=== PATIENT | female | born 1955 | race Two or more races ===

== ENCOUNTER 2018-03-11 13:42 | Emergency (ER) | payer OTHER ==
[~2018-03-11] VITALS: Ht 121.9 cm; Wt 46.7 kg
[2018-03-11] MEDS ORDERED: SYNTHROID75 MCG PO (14:20)
[2018-03-11] MEDS ORDERED: XANAX0.25 MG PO (14:20)
[2018-03-11] MEDS ORDERED: ZOLOFT25 MG PO (14:21)
== END 2018-03-11 17:35 | disposition home or self-care (01) ==
LOC: ER 13:42
DX: G25.2 Other specified forms of tremor (principal)

== ENCOUNTER 2019-11-01 11:34 | Emergency (ER) | payer OTHER ==
[~2019-11-01] VITALS: Ht 142.2 cm; Wt 56.7 kg
[~2019-11-01 11:34] MED LIST: SYNTHROID75 MCG PO; XANAX0.25 MG PO; ZOLOFT25 MG PO
== END 2019-11-01 22:09 | disposition home or self-care (01) ==
LOC: ER 11:34
DX: R33.8 Other retention of urine (principal); F41.8 Other specified anxiety disorders; G30.8 Other Alzheimer's disease; F02.80 Dementia in other diseases classified elsewhere, unspecified severity, without behavioral disturbance, psychotic disturbance, mood disturbance, and anxiety

== ENCOUNTER 2020-05-09 14:24 | Emergency (ER) | payer OTHER ==
[~2020-05-09] VITALS: Ht 137.2 cm; Wt 57.2 kg
== END 2020-05-09 21:03 | disposition home or self-care (01) ==
LOC: ER 14:24
DX: L03.116 Cellulitis of left lower limb (principal); I82.492 Acute embolism and thrombosis of other specified deep vein of left lower extremity

== ENCOUNTER 2020-05-10 12:57 | Outpatient (CLI) | payer OTHER | END 2020-05-10 13:06 | disposition home or self-care (01) | LOC: NUCLEAR 12:57 | PROVIDERS: ATTEND General Practice | DX: I82.403 Acute embolism and thrombosis of unspecified deep veins of lower extremity, bilateral (principal) ==

== ENCOUNTER 2020-05-11 09:53 | Outpatient (CLI) | payer OTHER | END 2020-05-11 10:04 | disposition home or self-care (01) | LOC: NUCLEAR 09:53 | PROVIDERS: ATTEND General Practice | DX: I82.403 Acute embolism and thrombosis of unspecified deep veins of lower extremity, bilateral (principal); I73.9 Peripheral vascular disease, unspecified ==

== ENCOUNTER 2022-12-12 21:57 | Emergency (ER) | payer OTHER ==
[~2022-12-12] VITALS: Ht 132.1 cm; Wt 68.0 kg
[2022-12-12] MEDS ORDERED: RIVASTIGMINE1 EAC1 (22:56)
[2022-12-12] MEDS ORDERED: FAMOTIDINE20 MG (22:56)
[2022-12-12] MEDS ORDERED: ESCITALOPRAM OX10 MG PO (22:56)
[2022-12-12] MEDS ORDERED: TRAZODONE HCL50 MG (22:57)
[2022-12-12] MEDS ORDERED: OLANZAPINE2.5 MG PO (22:57)
== END 2022-12-13 19:17 | disposition home or self-care (01) ==
LOC: ER 21:57
DX: K94.23 Gastrostomy malfunction (principal); Q90.9 Down syndrome, unspecified

== ENCOUNTER 2022-12-18 18:03 | Inpatient (IN) | payer OTHER ==
[~2022-12-18] VITALS: Ht 152.4 cm; Wt 72.6 kg
[~2022-12-18 18:03] MED LIST changes: +ESCITALOPRAM OX10 MG PO; +FAMOTIDINE20 MG; +OLANZAPINE2.5 MG PO; +RIVASTIGMINE1 EAC1; +TRAZODONE HCL50 MG
[2022-12-19] MEDS ORDERED: LEVOTHYROXINE150 MCG (08:22)
[2022-12-19] MEDS ORDERED: FISH OIL 500 M1 EAC3 (08:22)
[2022-12-19] MEDS ORDERED: SENTRY TABLET1 EACH (08:22)
[2022-12-19] MEDS ORDERED: VITAMIN D325 MCG (08:22)
== END 2022-12-29 21:00 | disposition home or self-care (01) | DRG 871 ==
LOC: ER 18:03 → MEDJ 20:50 → ICU-2 20:50 → MEDJ 12-21 16:05
PROVIDERS: ADMIT Internal Medicine; ATTEND Internal Medicine
PROC: 3E0F7GC Introduction of Other Therapeutic Substance into Respiratory Tract, Via Natural or Artificial Opening (ICD-10-PCS; 2022-12-18)
PROC: 4A12X4Z Monitoring of Cardiac Electrical Activity, External Approach (ICD-10-PCS; 2022-12-18)
PROC: 02HV33Z Insertion of Infusion Device into Superior Vena Cava, Percutaneous Approach (ICD-10-PCS; 2022-12-19)
PROC: 3E0G76Z Introduction of Nutritional Substance into Upper GI, Via Natural or Artificial Opening (ICD-10-PCS; 2022-12-19)
PROC: 8E0ZXY6 Isolation (ICD-10-PCS; principal; 2022-12-21)
DX: A41.02 Sepsis due to Methicillin resistant Staphylococcus aureus (principal); B37.1 Pulmonary candidiasis; J69.0 Pneumonitis due to inhalation of food and vomit; R65.21 Severe sepsis with septic shock; J96.01 Acute respiratory failure with hypoxia; F31.89 Other bipolar disorder; A41.89 Other specified sepsis; Q90.9 Down syndrome, unspecified; R13.19 Other dysphagia; I10 Essential (primary) hypertension; E03.9 Hypothyroidism, unspecified; Z74.01 Bed confinement status; Z20.822 Contact with and (suspected) exposure to COVID-19; Z99.81 Dependence on supplemental oxygen; Z78.1 Physical restraint status

== ENCOUNTER 2023-04-14 15:50 | Emergency (ER) | payer OTHER ==
[~2023-04-14] VITALS: Ht 149.9 cm; Wt 54.4 kg
[~2023-04-14 15:50] MED LIST changes: +FISH OIL 500 M1 EAC3; +LEVOTHYROXINE150 MCG; +SENTRY TABLET1 EACH; +VITAMIN D325 MCG
== END 2023-04-14 16:35 | disposition home or self-care (01) ==
LOC: ER 15:50
DX: K94.23 Gastrostomy malfunction (principal)

== ENCOUNTER 2023-12-19 18:21 | Inpatient (IN) | payer OTHER ==
[~2023-12-19] VITALS: Ht 152.4 cm; Wt 54.4 kg
--- NOTE | 2023-12-19 18:40 | NUR ---
PTE ALERTA Y ACTIVA CON DIAGNOSTICO DE SYNDROME DOWN TRAIDA EN AMBULANCIA DESDE UN HOME PORQUE SE RETIRO EL PEG ESTA TARDE.
--- NOTE | 2023-12-19 21:02 | NUR ---
DR BERNAL INTENTA COLOCAR PEG SIN EXITO.
[2023-12-19] MEDS ORDERED: 0.9 % SODIUM CHLORIDE 1,000 ML IV SCH (21:45)
[2023-12-19] MEDS ORDERED: ONDANSETRON HCL 4 MG in 0.9 % SODIUM CHLORIDE 50 ML IV PRN (22:00)
[2023-12-19] MEDS ORDERED: ACETAMINOPHEN 500 MG GEL..CAP PO PRN (22:00)
[2023-12-20 01:58] LABS: HEMATOCRIT 42.6 % (36.0-45.00); HEMOGLOBIN 14.6 g/dL (12.0-15.00); MEAN CELL VOLUME 100.2 fL (80.00-100.00); MEAN CORPUSCULAR HEMOGLOBIN 34.3 pg (27.00-32.0); MEAN CORPUSCULAR HGB CONC 34.2 g/dl (32.0-36.0); PLATELET COUNT 317 K/uL (150-450); RED BLOOD COUNT 4.25 M/uL (4.00-6.00); RED CELL DISTRIBUTION WIDTH 14.3 % (11.5-14.5)
[2023-12-20 02:10] LABS: INR 0.98; PARTIAL THROMBOPLASTIN TIME 24.8 SECONDS (22.0-34.0); PROTHROMBIN TIME 10.3 SECONDS (9.0-11.5)
[2023-12-20 02:15] LABS: ALBUMIN 2.8 gm/dL (3.4-5.0); BILIRUBIN TOTAL 0.62 mg/dL (0.3-1.2); CALCIUM 8.8 mg/dL (8.5-10.1); CREATININE SERUM 0.85 mg/dL (0.55-1.02); GFR 66.71; GLOBULINA 4.5 G/DL (2.4-3.5); POTASSIUM 4.24 mEq/L (3.5-5.1); TOTAL PROTEIN 7.3 gm/dL (6.4-8.2)
[2023-12-20 02:55] LABS: PH,URINE 8.5 (5.0-8.0); URINE APPEARANCE Turbid; URINE BILIRRUBIN Negative (NEGATIVE); URINE BLOOD Large; URINE COLOR Yellow; URINE GLUCOSE Negative (NEGATIVE); URINE LEUKOCYTE Large; URINE NITRATE Positive; URINE PROTEIN 30 (NEGATIVE); URINE UROBILINOGEN 0.2 E.U./dl
[2023-12-20 03:00] LABS: URINE EPITHELIAL CELLS 29.9 uL (0.0-38.8); URINE RBC 476.8 uL (0.0-20.8); URINE WBC 354.3 uL (0.0-23.2)
[2023-12-20 03:41] LABS: URINE CRYSTALS MANY /HPF
[2023-12-20] MEDS ORDERED: LEVOTHYROXINE SODIUM 150 MCG TABLET PO SCH (06:00)
[2023-12-20] MEDS ORDERED: FAMOTIDINE/PF 20 MG/2 ML VIAL ONE (08:00)
[2023-12-20] MEDS ORDERED: FAMOTIDINE/PF 20 MG in 0.9 % SODIUM CHLORIDE 8 ML IV PUSH SCH (09:00)
[2023-12-20] MEDS ORDERED: CEFTRIAXONE SODIUM 2,000 MG in 0.9 % SODIUM CHLORIDE 100 ML IV SCH (09:00)
[2023-12-20] MEDS ORDERED: TRAZODONE HCL 50 MG TABLET PO SCH (21:00)
[2023-12-21] MEDS ORDERED: FAMOTIDINE/PF 20 MG/2 ML VIAL ONE (09:54)
[2023-12-22] MEDS ORDERED: FAMOTIDINE/PF 20 MG/2 ML VIAL ONE (07:18)
== END 2023-12-22 22:48 | DRG 394 ==
LOC: ER 18:21 → SURH 22:03
PROVIDERS: General Practice; ADMIT Internal Medicine; ATTEND Internal Medicine
PROC: BW21ZZZ Computerized Tomography (CT Scan) of Abdomen and Pelvis (ICD-10-PCS; principal; 2023-12-19)
DX: K94.23 Gastrostomy malfunction (principal); E87.0 Hyperosmolality and hypernatremia; Q90.9 Down syndrome, unspecified; E03.9 Hypothyroidism, unspecified; E86.0 Dehydration

== ENCOUNTER 2024-03-19 10:36 | Emergency (ER) | payer OTHER ==
[~2024-03-19] VITALS: Ht 142.2 cm; Wt 54.4 kg
== END 2024-03-19 13:52 | disposition home or self-care (01) ==
LOC: ER 10:36
DX: K94.23 Gastrostomy malfunction (principal)

== ENCOUNTER 2024-04-25 09:39 | Emergency (ER) | payer OTHER ==
[~2024-04-25] VITALS: Ht 152.4 cm; Wt 63.5 kg
== END 2024-04-25 10:18 | disposition home or self-care (01) ==
LOC: ER 09:39
DX: K94.23 Gastrostomy malfunction (principal)

== ENCOUNTER 2024-10-18 07:35 | Emergency (ER) | payer OTHER ==
[~2024-10-18] VITALS: Ht 149.9 cm; Wt 52.2 kg
[2024-10-18] MEDS ORDERED: 0.9 % SODIUM CHLORIDE 1,000 ML IV ONE (12:00)
[2024-10-18] MEDS ORDERED: MULTIVIT INFUSN,ADULT 4,VIT K 10 ML VIAL IV ONE (12:00)
[2024-10-18] MEDS ORDERED: DIATRIZOATE MEGLUMINE, SODIUM 30 ML BOTTLE ONE (14:18)
== END 2024-10-18 14:48 | disposition home or self-care (01) ==
LOC: ER 07:35
DX: K94.23 Gastrostomy malfunction (principal); G30.9 Alzheimer's disease, unspecified; F02.80 Dementia in other diseases classified elsewhere, unspecified severity, without behavioral disturbance, psychotic disturbance, mood disturbance, and anxiety; E03.9 Hypothyroidism, unspecified; Q90.9 Down syndrome, unspecified
CPT/HCPCS: 43762; 74240; 96365; 99283; J3490

== ENCOUNTER 2024-10-20 07:06 | Emergency (ER) | payer OTHER ==
[~2024-10-20] VITALS: Ht 152.4 cm; Wt 49.9 kg
== END 2024-10-20 19:13 | disposition designated cancer center or children's hospital (05) ==
LOC: ER 07:06
DX: K94.23 Gastrostomy malfunction (principal); Q90.9 Down syndrome, unspecified

== ENCOUNTER 2025-01-05 11:57 | Inpatient (IN) | payer OTHER ==
[~2025-01-05] VITALS: Ht 203.2 cm; Wt 52.2 kg
[2025-01-05] MEDS ORDERED: 0.9 % SODIUM CHLORIDE 1,000 ML IV SCH ×2 (12:15→18:30)
[2025-01-05 12:41] LABS: ABG PH 7.438 (7.35-7.45); ABG PO2 130.8 mmHg (80-100); ABG pCO2 41.9 mmHg (35-45); BASE EXCESS 3.2 mmol/l; BICARBONATE 27.7 mmol/l (23-25); SaO2 99.1 %
[2025-01-05 13:12] LABS: HEMATOCRIT 44.4 % (36.0-45.00); HEMOGLOBIN 15.1 g/dL (12.0-15.00); MEAN CELL VOLUME 103.5 fL (80.00-100.00); MEAN CORPUSCULAR HEMOGLOBIN 35.3 pg (27.00-32.0); MEAN CORPUSCULAR HGB CONC 34.1 g/dl (32.0-36.0); PLATELET COUNT 333 K/uL (150-450); RED BLOOD COUNT 4.29 M/uL (4.00-6.00); RED CELL DISTRIBUTION WIDTH 13.7 % (11.5-14.5)
[2025-01-05 14:07] LABS: ALBUMIN 2.5 gm/dL (3.4-5.0); BILIRUBIN TOTAL 0.39 mg/dL (0.3-1.2); CALCIUM 8.3 mg/dL (8.5-10.1); CREATININE SERUM 0.81 mg/dL (0.55-1.02); GFR 70.31; GLOBULINA 4.9 G/DL (2.4-3.5); POTASSIUM 4.5 mEq/L (3.5-5.1); TOTAL PROTEIN 7.4 gm/dL (6.4-8.2)
[2025-01-05 14:37] LABS: COVID-19 AG NEGATIVE (NEGATIVE)
[2025-01-05 14:39] LABS: INFLUENZA A AG NEGATIVE (NEGATIVE)
[2025-01-05 14:53] LABS: PH,URINE 7.5 (5.0-8.0); URINE APPEARANCE Cloudy; URINE BILIRRUBIN Negative (NEGATIVE); URINE BLOOD Large; URINE COLOR Yellow; URINE GLUCOSE Negative (NEGATIVE); URINE KETONE Negative (NEGATIVE); URINE LEUKOCYTE Large; URINE NITRATE Negative; URINE PROTEIN Trace (NEGATIVE); URINE UROBILINOGEN 0.2 E.U./dl
[2025-01-05 14:56] LABS: URINE BACTERIA 5949.6 uL (0.0-1933); URINE CAST 3.68 uL (0.0-1.40); URINE EPITHELIAL CELLS 68.2 uL (0.0-38.8); URINE RBC 299.7 uL (0.0-20.8); URINE WBC 148.6 uL (0.0-23.2)
[2025-01-05 15:27] LABS: URINE CRYSTALS MODERATE /HPF
[2025-01-05 15:29] LABS: allen test SATISFACTORY; mode NASAL CANNULA; o2 32 %; puncture site RADIAL RIGHT
[2025-01-05] MEDS ORDERED: IPRATROPIUM BROMIDE 0.5 MG/2.5 ML AMPUL.NEB IH SCH (18:19)
[2025-01-05] MEDS ORDERED: PIPERACILLIN/TAZOBACTAM SODIUM 3.375 GM in DEXTROSE 5 % IN WATER 100 ML IV SCH (18:20)
[2025-01-05] MEDS ORDERED: ACETAMINOPHEN 500 MG GEL..CAP PO PRN (18:30)
[2025-01-05] MEDS ORDERED: ONDANSETRON HCL 4 MG in 0.9 % SODIUM CHLORIDE 50 ML IV PRN (18:30)
[2025-01-05] MEDS ORDERED: LACTULOSE 10 G/15 ML ML RECTAL ONE ×2 (18:30→19:30)
[2025-01-05 19:47] LABS: INR 1.07; PARTIAL THROMBOPLASTIN TIME 26.8 SECONDS (22.0-34.0); PROTHROMBIN TIME 11.6 SECONDS (9.0-11.5)
[2025-01-05] MEDS ORDERED: PIPERACILLIN/TAZOBACTAM SODIUM 3.375 GM VIAL IV ONE (22:25)
[2025-01-06 00:30] VITALS: BP 100/78; O2SAT 96
[2025-01-06 00:35] VITALS: BP 100/78
[2025-01-06] MEDS ORDERED: LEVOTHYROXINE SODIUM 150 MCG TABLET PO SCH (06:00)
[2025-01-06] MEDS ORDERED: PATIENTS OWN MEDICATION (MEDICAMENTO EN PISO) PO SCH (09:00)
[2025-01-06] MEDS ORDERED: LACTULOSE 10 G/15 ML ML PO SCH (09:00)
[2025-01-06] MEDS ORDERED: LACTULOSE 20 G/30 ML BLIST.PACK PO SCH (09:00)
[2025-01-06] MEDS ORDERED: FAMOTIDINE/PF 20 MG in 0.9 % SODIUM CHLORIDE 8 ML IV PUSH SCH (09:00)
[2025-01-06] MEDS ORDERED: ENOXAPARIN SODIUM 40 MG/0.4 ML SYRINGE SUBCUTANEO SCH (09:00)
[2025-01-06] MEDS ORDERED: FF) Escitalopram Oxalate 5MG TABLET PO SCH (09:00)
[2025-01-07 00:47] VITALS: BP 115/58; O2SAT 84
[2025-01-07 08:00] VITALS: BP 97/60; O2SAT 99
[2025-01-07] MEDS ORDERED: MEROPENEM 500 MG/VIAL VIAL IV SCH (12:00)
[2025-01-07 15:44] LABS: MEAN CELL VOLUME 104.6 fL (80.00-100.00); MEAN CORPUSCULAR HGB CONC 33.5 g/dl (32.0-36.0); PLATELET COUNT 240 K/uL (150-450); RED BLOOD COUNT 4.01 M/uL (4.00-6.00); RED CELL DISTRIBUTION WIDTH 14.2 % (11.5-14.5)
[2025-01-07 16:00] VITALS: BP 106/57; O2SAT 98
[2025-01-07 16:13] LABS: ALBUMIN 2.5 gm/dL (3.4-5.0); BILIRUBIN TOTAL 0.57 mg/dL (0.3-1.2); CALCIUM 8.2 mg/dL (8.5-10.1); CREATININE SERUM 0.72 mg/dL (0.55-1.02); GFR 80.55; GLOBULINA 4.1 G/DL (2.4-3.5); MAGNESIUM 2.2 mg/dL (1.8-2.4); PHOSPHOROUS 2.5 mg/dL (2.5-4.9); POTASSIUM 3.58 mEq/L (3.5-5.1); TOTAL PROTEIN 6.6 gm/dL (6.4-8.2)
[2025-01-07 17:00] LABS: C-REACTIVE PROTEIN 1.02 MG/DL (0.00-0.29)
[2025-01-07] MEDS ORDERED: VANCOMYCIN HCL 5 MG/ML REDILUIDO IV SCH (17:00)
[2025-01-08 01:06] VITALS: BP 124/72; O2SAT 98
[2025-01-08 08:54] VITALS: BP 133/74; O2SAT 99
[2025-01-08 16:30] VITALS: BP 100/60; O2SAT 94
[2025-01-09] VITALS: BP 112/67; O2SAT 100
[2025-01-09 08:00] VITALS: BP 91/53; O2SAT 97
[2025-01-09 14:01] LABS: HEMATOCRIT 41.7 % (36.0-45.00); HEMOGLOBIN 14.2 g/dL (12.0-15.00); MEAN CELL VOLUME 102.8 fL (80.00-100.00); MEAN CORPUSCULAR HEMOGLOBIN 34.9 pg (27.00-32.0); PLATELET COUNT 255 K/uL (150-450); RED BLOOD COUNT 4.06 M/uL (4.00-6.00); RED CELL DISTRIBUTION WIDTH 13.8 % (11.5-14.5)
[2025-01-09 14:59] LABS: ALBUMIN 2.3 gm/dL (3.4-5.0); BILIRUBIN TOTAL 0.79 mg/dL (0.3-1.2); CALCIUM 8.2 mg/dL (8.5-10.1); CREATININE SERUM 0.48 mg/dL (0.55-1.02); GFR 128.61; POTASSIUM 3.47 mEq/L (3.5-5.1); TOTAL PROTEIN 6.3 gm/dL (6.4-8.2)
[2025-01-09 17:28] VITALS: BP 115/60; O2SAT 97
[2025-01-09] MEDS ORDERED: DEXTROSE 5 %-0.45 % SOD CHLORD 1,000 ML IV SCH (18:30)
[2025-01-10 00:39] VITALS: BP 100/69; O2SAT 99
[2025-01-10 08:00] VITALS: BP 139/87; O2SAT 98
[2025-01-10 16:00] VITALS: BP 112/69; O2SAT 100
[2025-01-11 00:19] VITALS: BP 104/67; O2SAT 97
[2025-01-11 16:41] VITALS: BP 64/48
[2025-01-12 00:29] VITALS: BP 91/60; O2SAT 97
[2025-01-12 08:14] VITALS: BP 99/63; O2SAT 95
[2025-01-12 10:31] LABS: HEMOGLOBIN 15.1 g/dL (12.0-15.00); MEAN CELL VOLUME 103.5 fL (80.00-100.00); MEAN CORPUSCULAR HEMOGLOBIN 34.7 pg (27.00-32.0); MEAN CORPUSCULAR HGB CONC 33.6 g/dl (32.0-36.0); PLATELET COUNT 197 K/uL (150-450); RED BLOOD COUNT 4.35 M/uL (4.00-6.00); RED CELL DISTRIBUTION WIDTH 14.2 % (11.5-14.5)
[2025-01-12 10:59] LABS: ALBUMIN 2.4 gm/dL (3.4-5.0); BILIRUBIN TOTAL 0.7 mg/dL (0.3-1.2); CALCIUM 8.5 mg/dL (8.5-10.1); CREATININE SERUM 0.43 mg/dL (0.55-1.02); GFR 146.02; GLOBULINA 4.4 G/DL (2.4-3.5); POTASSIUM 4.5 mEq/L (3.5-5.1); TOTAL PROTEIN 6.8 gm/dL (6.4-8.2)
[2025-01-12 17:23] VITALS: BP 97/62; O2SAT 100
[2025-01-13 01:02] VITALS: BP 91/61; O2SAT 65
[2025-01-13 08:00] VITALS: BP 91/62; O2SAT 96
[2025-01-13 14:48] LABS: ABG PH 7.542 (7.35-7.45); ABG PO2 363.7 mmHg (80-100); ABG pCO2 32.7 mmHg (35-45); BASE EXCESS 5.3 mmol/l; BICARBONATE 27.4 mmol/l (23-25); Tco2 28.4 mmol/l; allen test SATISFACTORY; mode BPAP; o2 100 %; puncture site RADIAL RIGHT
== END 2025-01-13 15:33 | DRG 177 ==
LOC: ER 11:57 → SURH 23:01
PROVIDERS: Emergency Medicine; General Practice; Internal Medicine; Internal Medicine Infectious Disease; ADMIT Internal Medicine; ATTEND Internal Medicine
PROC: BW28ZZZ Computerized Tomography (CT Scan) of Head (ICD-10-PCS; principal; 2025-01-05)
PROC: BB24ZZZ Computerized Tomography (CT Scan) of Bilateral Lungs (ICD-10-PCS; 2025-01-05)
PROC: 3E0F7GC Introduction of Other Therapeutic Substance into Respiratory Tract, Via Natural or Artificial Opening (ICD-10-PCS; 2025-01-07)
DX: J69.0 Pneumonitis due to inhalation of food and vomit (principal); G93.41 Metabolic encephalopathy; K94.23 Gastrostomy malfunction; N39.0 Urinary tract infection, site not specified; E03.9 Hypothyroidism, unspecified; J22 Unspecified acute lower respiratory infection; G30.9 Alzheimer's disease, unspecified; F02.80 Dementia in other diseases classified elsewhere, unspecified severity, without behavioral disturbance, psychotic disturbance, mood disturbance, and anxiety; Q90.9 Down syndrome, unspecified; B95.2 Enterococcus as the cause of diseases classified elsewhere